=== PATIENT | female | born 1985 | race Caucasian/White ===

== ENCOUNTER 2024-04-24 18:27 | Emergency (ER) | payer OTHER ==
[~2024-04-24] VITALS: Ht 154.9 cm; Wt 96.6 kg
[2024-04-24 18:30] VITALS: TEMP 97.8
[2024-04-24] MEDS: ONDANSETRON HCL INJ 2MG/ML 2ML 2 MG/ML VIAL IV STA (18:55)
[2024-04-24] MEDS: DICYCLOMINE HCL 20 MG/2 ML VIAL IM ONE (18:55)
[2024-04-24 19:01] VITALS: RESP 17
[2024-04-24 19:09] LABS: BASOPHILS # (AUTO) 0.1 (0.0-0.1); BASOPHILS % 1.1 % (0.0-1.0); EOSINOPHILS # (AUTO) 0.1 (0.0-0.4); EOSINOPHILS % 1.3 % (0.0-6.0); HEMATOCRIT 43.4 % (34.2-44.1); HEMOGLOBIN 13.9 g/dL (12.0-16.0); LYMPHOCYTES # (AUTO) 1.6 (1.0-3.2); LYMPHOCYTES % 34.7 % (18.0-39.1); MEAN CORPUSCULAR HEMOGLOBIN 30.9 pg (28-32); MEAN CORPUSCULAR VOLUME 96.4 fL (81-99); MONOCYTES # (AUTO) 0.5 (0.2-0.8); MONOCYTES % 11.3 % (4.4-11.3); NEUTROPHILS # (AUTO) 2.4 (2.1-6.9); NEUTROPHILS % 51.2 % (38.7-80.0); PLATELET COUNT 266 x10e3/uL (140-360); RED CELL DISTRIBUTION WIDTH 12.5 % (11.7-14.4)
[2024-04-24 19:26] LABS: ALBUMIN 4.1 g/dL (3.5-5.0); ALBUMIN/GLOBULIN RATIO 1.3 (0.8-2.0); BILIRUBIN,TOTAL 0.5 mg/dL (0.2-1.2); CALCIUM 9.1 mg/dL (8.4-10.2); CREATININE, SERUM 0.96 mg/dL (0.57-1.11); LIPASE 82 U/L (8-78); TOTAL PROTEIN 7.3 g/dL (6.5-8.1)
[2024-04-24 19:32] LABS: TROPONIN I < 0.001 ng/mL (0-0.300)
[2024-04-24 20:00] VITALS: PULSE 67
[2024-04-24] MEDS ORDERED: PANTOPRAZOLE SO40 MG PO (20:38)
[2024-04-24 20:53] VITALS: BP 154/95; O2SAT 100
== END 2024-04-24 20:50 | disposition home or self-care (01) ==
LOC: ER 18:43
DX: R10.13 Epigastric pain (principal); K29.70 Gastritis, unspecified, without bleeding; R94.31 Abnormal electrocardiogram [ECG] [EKG]
CPT/HCPCS: 36415; 76705; 80053; 83690; 84484; 84702; 85025; 93005; 99284; J0500; J2405; J2470